=== PATIENT | female | born 1945 | race Caucasian/White ===

== ENCOUNTER 2021-10-21 07:50 | Day surgery (SDC) | payer MEDICARE, OTHER ==
[~2021-10-21] VITALS: Ht 168 cm; Wt 72.6 kg
[~2021-10-21 07:50] MED LIST: B COMPLEX1 EACH PO; CALCIUM500 MG PO; ESTRACE0.5 MG PO; HCTZ12.5 MG PO; LOVAZA1 GM PO; MAGNESIUM250 M1 PO; PERCOCET 5/3251 TAB PO; PRAVACHOL20 MG PO; PROVERA2.5 MG PO; VITAMIN D-40010 MCG PO; VITAMIN E200 UNI1 PO; XARELTO10 MG PO; ZINC50 M2 PO; [UNRECOGNIZED DRUG - REMARK] PO
[2021-10-22 06:43] LABS: BASOPHIL 0.1 % (0-2); EOSINOPHIL 0 % (0-7); HCT 27.9 % (37.0-47.0); HGB 9.3 g/dl (12.5-16.0); LYMPHOCYTE 9.8 % (15-48); MCH 31.4 pg (25.0-31.0); MCHC 33.3 g/dL (32.0-36.0); MCV 94.3 fL (78.0-100.0); MONOCYTE 6.7 % (0-12); MPV 9.5 fL (6.0-9.5); NEUTROPHIL 82.9 % (41-80); NRBC 0; PLT 171 K/uL (150-400); RBC 2.96 M/uL (4.20-5.40); RDW 13.4 % (11.5-14.0); WBC 10.2 K/uL (4.0-10.5)
[2021-10-22 07:18] LABS: BUN/CREAT RATIO (CALC) 15.4 RATIO; CREATININE 1.3 mg/dL (0.51-0.95)
[2021-10-22] MEDS ORDERED: ASPIRIN81 MG PO (08:44)
[2021-10-22] MEDS ORDERED: FEOSOL325 MG PO (08:44)
[2021-10-22] MEDS ORDERED: ONDANSETRON HCL4 MG PO (09:33)
== END 2021-10-22 11:18 | disposition home health service (06) ==
LOC: FMS 07:50 → FAS 07:50 → FMS 11:26 → FAS 10-22 11:18
PROVIDERS: Orthopaedic Surgery
DX: M17.12 Unilateral primary osteoarthritis, left knee (principal); M21.062 Valgus deformity, not elsewhere classified, left knee; I10 Essential (primary) hypertension; E78.5 Hyperlipidemia, unspecified; K21.9 Gastro-esophageal reflux disease without esophagitis; R42 Dizziness and giddiness; Z88.1 Allergy status to other antibiotic agents; Z88.2 Allergy status to sulfonamides; Z91.041 Radiographic dye allergy status; Z79.899 Other long term (current) drug therapy
CPT/HCPCS: 36415; 73560; 80048; 85025; 86850; 86900; 86901; 94010; 94760; 94762; 97110; 97162; 97166; 97530-GP; 97535; C1713; C1776; J0171; J0697; J1170; J1885; J2250; J2270; J2405; J2795; J3010; J7120